=== PATIENT | female | born 1945 | race Caucasian/White ===

== ENCOUNTER 2020-06-14 15:20 | Outpatient (CLI) | payer MEDICARE, BC | END 2020-06-14 15:21 | disposition home or self-care (01) | LOC: CSHULT 15:20 | PROVIDERS: ATTEND Internal Medicine Cardiovascular Disease | DX: M79.89 Other specified soft tissue disorders (principal); Z95.0 Presence of cardiac pacemaker ==

== ENCOUNTER 2021-02-08 08:44 | Outpatient (CLI) | payer MEDICARE, BC | END 2021-02-08 08:45 | disposition home or self-care (01) | LOC: CSHULT 08:44 | PROVIDERS: ATTEND Internal Medicine | DX: K83.8 Other specified diseases of biliary tract (principal); K76.89 Other specified diseases of liver; K86.2 Cyst of pancreas | CPT/HCPCS: 76705 ==